=== PATIENT | male | born 1980 | race Hispanic/Latino ===

== ENCOUNTER → 2021-09-10 | Outpatient (CLI) | payer OTHER ==
[~2021-09-10] MED LIST: LIDOCAINE HCL 1% LOCAL INJ 20 ML VIAL ONE
== END ==
LOC: US 12:03
PROVIDERS: ATTEND Otolaryngology Otolaryngology/Facial Plastic Surgery
DX: E07.9 Disorder of thyroid, unspecified (principal); R22.1 Localized swelling, mass and lump, neck
CPT/HCPCS: 10005; 88112; 88305; J2001